=== PATIENT | male | born 1965 | race Caucasian/White ===

== ENCOUNTER 2018-10-28 17:45 | Inpatient (IN) | payer SELFPAY ==
[2018-10-28] MEDS ORDERED: NS 0.9% 1000 ML** 1,000 ML IV ONE (21:42)
[2018-10-28] MEDS ORDERED: Vancomycin(*) 1,500 MG in NS 0.9% 250 ML* 250 ML IVPB ONE (21:43)
--- NOTE | 2018-10-28 21:44 | ED ---
Skin Complaint - HPI Summary HPI Summary: This pt is a 53 y/o male presenting to [facility] c/o wound to left moreno. Pt reports he scraped his left moreno about 3 weeks ago and washed it with water from the [place]. He notes it became infected and was placed on Doxycycline and then Keflex. Pt has been taking antibiotics without effect. Pt notes today he [facility] and was sent to the ED for further treatment. Pt notes his wound on left moreno is painful and red. Denies fever[place] now. Denies DM. Denies any IVDU. Pt admits to marijuana and some alcohol use. Denies any drug use. - History of Current Complaint Chief Complaint: EDRashSkinAbscess Time Seen by Provider: 10/28/18 21:35 Stated Complaint: Staph infection per pt Hx Obtained From: Patient Onset/Duration: Started Weeks Ago, Still Present Skin Exposure Onset/Duration: Weeks Ago Timing: Lasting Weeks Current Severity: Moderate Pain Intensity: 4 Pain Scale Used: 0-10 Numeric Skin Location: Other: - left moreno Character: Pain, Redness Aggravating Symptom(s): Nothing Alleviating Symptom(s): Nothing Associated Signs & Symptoms: Negative - Allergy/Home Medications Allergies/Adverse Reactions: Allergies Allergy/AdvReac Type Severity Reaction Status Date / Time Penicillins Allergy GI Upset Verified 10/28/18 22:20 Home Medications: Home Medications NK [No Home Medications Reported] 10/28/18 [History Confirmed 10/28/18] PMH/Surg Hx/FS Hx/Imm Hx Endocrine/Hematology History: Denies: Hx Diabetes Cardiovascular History: Denies: Hx Hypertension Infectious Disease History: No Infectious Disease History: Denies: Traveled Outside the [place] in Last 30 Days - Family History Known Family History: Negative: Cardiac Disease, Hypertension, Diabetes - Social History Alcohol Use: Weekly Substance Use Type: Reports: Marijuana Substance Use Comment - Amount & Last Used: Weekly Smoking Status (MU): Heavy Every Day Tobacco Smoker Review of Systems Negative: Fever Musculoskeletal: Other - POSITIVE: left moreno abel Skin: Other - POSITIVE: wound to left moreno All Other Systems Reviewed And Are Negative: Yes Physical Exam - Summary Physical Exam Summary: Appearance: Well-appearing, Well-nourished, lying in bed comfortable Skin: Warm, dry, no obvious rash. Left leg has a 2 x5 cm irregularly shaped ulcer in the skin, which is exuding pus with surrounding erythema but not lymphangitic streaking. Eyes: sclera anicteric, no conjunctival pallor ENT: mucous membranes moist Neck: deferred Respiratory: No signs of respiratory distress Cardiovascular: Appears well perfused, pulses are nml Abdomen: deferred Musculoskeletal: Moving all 4 extremities without obvious discomfort Neurological: Awake and alert, mentation is normal, speech is fluent and appropriate Psychiatric: affect is normal, does not appear anxious or depressed Triage Information Reviewed: Yes Vital Signs On Initial Exam: Initial Vitals Temp Pulse Resp BP Pulse Ox 99.4 F 89 18 121/91 95 10/28/18 18:01 10/28/18 18:01 10/28/18 18:01 10/28/18 18:01 10/28/18 18:01 Vital Signs Reviewed: Yes Diagnostics - Vital Signs Vital Signs Temp Pulse Resp BP Pulse Ox 10/28/18 20:05 98.2 F 82 16 130/79 96 10/28/18 18:01 99.4 F 89 18 121/91 95 - Laboratory Result Diagrams: 10/28/18 22:06 10/28/18 22:06 Lab Statement: Any lab studies that have been ordered have been reviewed, and results considered in the medical decision making process. Course/Dx - Course Assessment/Plan: Pt is a 53 y/o male presenting to [facility] c/o wound to left moreno. Pt reports he scraped his left moreno about 3 weeks ago and washed it with water from the [place]. Pt not responding to antibiotics and was sent to the ED for further treatment. Blood work was obtained. In the ED course the pt was given IV fluids, vancomycin, naproxen. Discussed the case with Dr. Xie, hospitalist, who accepted the pt for admission. - Diagnoses Provider Diagnoses: Cellulitis, Leg ulcer, left - Physician Notifications Discussed Care Of Patient With: Flakita Xie - hospitalist Time Discussed With Above Provider: 22:07 Instructed by Provider To: Admit As Inpatient Discharge - Sign-Out/Discharge Documenting (check all that apply): Patient Departure - Admit to [facility] Received Moderate/Deep Sedation with Procedure: No - Discharge Plan Condition: Stable Disposition: ADMITTED TO [facility] - Billing Disposition and Condition Condition: STABLE Disposition: Admitted to [facility] - Attestation Statements Document Initiated by Scribe: Yes Documenting Scribe: Jerrica Pham Provider For Whom Yasmani is Documenting (Include Credential): Israel Castro MD Scribe Attestation: I, maren Jacksonibed for Israel Castro MD on 10/30/18 at 0604. Scribe Documentation Reviewed: Yes Provider Attestation: The documentation as recorded by the Jerrica sommers accurately reflects the service I personally performed and the decisions made by me, Israel Castro MD Status of Scribe Document: Viewed
[2018-10-28 22:10] LABS: ABS Basophils 0.1 10^3/ul (0-0.2); ABS Eosinophils 0.2 10^3/ul (0-0.6); ABS Lymphocytes 2.4 10^3/ul (1.0-4.8); ABS Monocytes 0.6 10^3/ul (0-0.8); ABS Neutrophils 4.7 10^3/ul (1.5-7.7); Eosinophil % 2.6 %; Hematocrit 41 % (42-52); Hemoglobin 13.7 g/dL (14.0-18.0); Lymphocyte % 29.6 %; Mean Corpuscular HGB Conc 33 g/dL (31-36); Mean Corpuscular Hemoglobin 31 pg (27-31); Mean Corpuscular Volume 93 fL (80-94); Mean Platelet Volume 6.4 fL (7.4-10.4); Platelet Count 275 10^3/uL (150-450); Red Blood Count 4.42 10^6 /uL (4.18-5.48); Red Cell Distribution Width 14 % (10-15)
[2018-10-28] MEDS ORDERED: Naproxen TAB* 375 MG PO ONE (22:23)
[2018-10-28 22:27] LABS: Albumin 3.9 g/dL (3.2-5.2); Albumin/Globulin Ratio 1.3 (1-3); BUN/Creatinine Ratio 22.6 (8-20); C Reactive Protein 3.24 mg/L (<8.01); Calcium 8.6 mg/dL (8.6-10.3); EGFR African American 116.1 (>60); Potassium 3.8 mmol/L (3.5-5.0); Total Bilirubin 0.3 mg/dL (0.2-1.0); Total Protein 6.9 g/dL (6.4-8.9)
[2018-10-28] MEDS ORDERED: Acetaminophen TAB* 325 MG PO PRN (23:35)
[2018-10-28] MEDS ORDERED: Vancomycin per Pharmacy* NOTE FOLLOW UP SCH (23:45)
[2018-10-29] MEDS ORDERED: Nicotine* 4MG (FRUIT FLAVOR) GUM PO PRN (01:20)
--- NOTE | 2018-10-29 02:24 | HP ---
HISTORY AND PHYSICAL: DATE OF ADMISSION: 10/28/18 PRIMARY CARE PROVIDER: None, though the patient has sought medical care at [facility]. CHIEF COMPLAINT: Left leg wound. HISTORY OF PRESENT ILLNESS: Mr. White is a 53-year-old male who states at approximately three to plmna-zuk-y-half weeks ago, he scraped his left moreno. He states he washed the area with soap and water though he then tells me that [place] the leg. He noted an ulceration and erythema and therefore went to [facility] where he was prescribed Keflex for cellulitis. He had continued concerns and therefore after completing the Keflex from back to [facility] and was started on doxycycline. He states he completed this approximately 4 days ago. He notes that the ulcer has enlarged. The surrounding erythema; however, has improved. He has no fevers and no chills though ulceration is painful. He states that it is very itchy around the ulcer. He went to [facility] today for followup and they referred him to the emergency room for worsened infection. PAST MEDICAL HISTORY: None. PAST SURGICAL HISTORY: None. MEDICATIONS: None. ALLERGIES: PENICILLIN, which causes diarrhea. FAMILY HISTORY: He is adopted. SOCIAL HISTORY: The patient smokes 1 pack per day and has done so for 34 years. He drinks alcohol on occasion. He smokes marijuana on occasion. He states he works for a [employer] [place]. He states he also cooks. He is . He has no children. He indicates that his sister , Mulu White, would be his surrogate decision maker that he states he has not spoken to her in 6 years. REVIEW OF SYSTEMS: A complete 11-system review of systems is obtained. Pertinent positives and negatives are as per HPI and otherwise negative. PHYSICAL EXAMINATION GENERAL: The patient is a well-developed, middle-aged male, sitting up in the stretcher, in no acute distress. VITAL SIGNS: Blood pressure 121/91, pulse 89, respirations 18, temp 99.4, O2 sat 95% on room air. HEENT: Pupils are equal and round. Extraocular muscles are intact. Oropharynx is clear. Oral mucosa is moist. There is no submandibular, cervical , or supraclavicular adenopathy. Thyroid is not enlarged. No thyroid nodules are noted. PULMONARY: Lungs are clear to auscultation bilaterally. CARDIAC: Normal S1, S2. Regular rate and rhythm. I do not appreciate any murmurs. ABDOMEN: Bowel sounds are present. Abdomen is soft, nontender, and nondistended. MUSCULOSKELETAL: There is no cyanosis or clubbing of the digits. There is full active range of motion of all 4 extremities. SKIN: There is a large approximately 1.5 to 2 inch long irregular-shaped ulceration with exposed subcutaneous tissue and slight amount of slough overlying the left anterior moreno. There is erythema surrounding the wound that looks to be inflammatory in nature. There is peeling skin surrounding the wound. There is also perhaps another smaller area of ulceration occurring at the upper aspect of the area of erythema. NEURO: Cranial nerves II through XII are grossly intact. Sensation is intact to light touch throughout. PSYCH: The patient is alert. He is oriented x3. Affect appears appropriate. LABORATORY DATA: WBC 8.0, hemoglobin 13.7, hematocrit 41, platelets 275. Sodium 136, potassium 3.8, chloride 105, CO2 26, BUN 19, creatinine 0.84, glucose 156. Lactic acid 1.1. Calcium 8.6, bilirubin 0.3, AST 18, ALT 19, alk phos 84. CRP 3.24. Albumin 3.9. ASSESSMENT AND PLAN: Mr. White is a 53-year-old male who scraped his left leg on something approximately three to ytber-nso-n-half weeks ago, subsequently washed the wound in the [place] though did use soap and has developed worsened ulceration and surrounding cellulitis treated with antibiotics x2 and sent to the emergency room for evaluation of continued infection and need for IV antibiotics. 1. Left lower extremity wound with perhaps mild surrounding cellulitis. At this point, the patient will be admitted under observation status. There is no clear evidence of infection at this time. There is erythema surrounding the wound; however, it appears to be reactive or inflammatory in nature. The wound base does have some slough on it. A culture of this wound obtained previously grew group A Strep. It was resistant to tetracycline but sensitive to cephalosporin. At this point, I feel the patient needs more wound management than anything else. I will administer vancomycin IV overnight while awaiting the repeat wound culture that was obtained in the emergency room. Wound care consult has been requested. 2. DVT prophylaxis: According to the Adult Thrombosis Prophylaxis Risk Factor Assessment Guide, the patient has a total risk factor score of 1 making him low risk. Ambulation will be utilized as DVT prophylaxis. 3. Code status is full. TIME SPENT: 45 minutes were spent admitting this patient. [id number]/[facility] #: [id number] MARYCRUZ
[2018-10-29] MEDS: Vancomycin(*) 1,000 MG in NS 0.9% 250 ML* 250 ML IVPB SCH ×3 (05:56→22:20)
[2018-10-29 06:32] LABS: Urine Appearance Clear; Urine Bilirubin Negative (Negative); Urine Blood Negative (Negative); Urine Color Yellow; Urine Glucose Negative (Negative); Urine Ketones Negative (Negative); Urine Nitrite Negative (Negative); Urine Protein Negative (Negative); Urine Specific Gravity 1.024 (1.010-1.030); Urine Urobilinogen Negative (Negative)
[2018-10-29] MEDS: Nicotine PATCH 21 MG/24 HR* PATCH TRANSDERM SCH (10:17)
--- NOTE | 2018-10-29 12:30 | PN ---
Subjective Date of Service: 10/29/18 Interval History: Patient seen in his room 403 this morning. Pleasant. complains of pain with assessment of his left leg ulcer. he reports intermittent bleed and soaked dressing with blood and secretions. No fever. cultures from this admission still pending. His outpatient culture dated 10/07/18 grew strep Pyogenes resistant to doxycycline. Currently on vancomycin, however he does have purulent secretion and green secretion. I will expand coverage to cover pseudomona's while waiting for the culture Past Medical History: Unchanged from Admission Objective Active Medications: Acetaminophen (Tylenol Tab*) 650 mg PO Q4H PRN PRN Reason: PAIN - MILD Vancomycin HCl 1,000 mg/ (Sodium Chloride) 250 mls @ 166.667 mls/hr IVPB Q8H [facility] Last Admin: 10/29/18 05:56 Dose: 166.667 mls/hr Cefepime HCl (Maxipime 2 Gm In Dextrose Duplex (*)) 2 gm in 50 mls @ 100 mls/ hr IV Q12H [facility] Nicotine (Nicotine Patch 21 Mg/24 Hr*) 1 patch TRANSDERM DAILY@0800 [facility] Last Admin: 10/29/18 10:17 Dose: Not Given Nicotine Polacrilex (Nicotine Gum*) 4 mg PO Q2H PRN PRN Reason: CRAVING Last Admin: 10/29/18 10:16 Dose: 4 mg Pharmacy Consult (Vancomycin Per Pharmacy*) 1 note FOLLOW UP .VANC PER PHARMACY [facility]; Protocol Pharmacy Profile Note (Vancomycin Trough Check) 1 note FOLLOW UP 0600 [facility] Stop: 10/30/18 06:01 Pharmacy Profile Note (Nicotine Patch Removal Note*) 1 note FOLLOW UP 2100 [facility] Vital Signs - 8 hr 10/29/18 10/29/18 10/29/18 08:08 11:37 11:54 Temperature 98 F 97.3 F Pulse Rate 56 45 59 Respiratory 18 16 Rate Blood Pressure 118/65 103/47 (mmHg) O2 Sat by Pulse 97 90 95 Oximetry Oxygen Devices in Use Now: None Appearance: Awake, alert. no distress Eyes: No Scleral Icterus, PERRLA Ears/Nose/Mouth/Throat: Mucous Membranes Moist Neck: NL Appearance and Movements; NL JVP, Trachea Midline Respiratory: Symmetrical Chest Expansion and Respiratory Effort, Clear to Auscultation Cardiovascular: NL Sounds; No Murmurs; No JVD, RRR, No Edema Abdominal: NL Sounds; No Tenderness; No Distention Skin: - - DOREEN ulcer mid chin with deep crater and purulent and greenish discharge Neurological: Alert and Oriented x 3 Result Diagrams: 10/28/18 22:06 10/28/18 22:06 Microbiology and Other Data: Microbiology 10/28/18 21:50 Skin and Soft Tissue MRSA/MSSA (PCR - Final Leg Left Mrsa Negative S.aureus Negative Gram Stain - Final Assess/Plan/Problems-Billing Assessment: 53 y/o male admitted for LLE ulcer traumatic exacerbated by washing with soap and [place] failed outpatient keflex and doxycycline - Patient Problems (1) Ulcer of left lower leg Current Visit: Yes Status: Acute Code(s): L97.929 - NON-PRS CHRONIC ULC UNSP PRT OF L LOW LEG W UNSP SEVERITY SNOMED Code(s): 046055942 Comment: - Failed outpatient keflex and doxycycline - Admitted on 10/28/18 on vancomycin Day # 1, will add Cefepime to cover pseudomona pending final culture - his outpatient culture from 10/07/18 grew strep Pyogenes resistant to doxycycline, will reculture to ensure he did not have secondary bacterial infections. - Ordered ESR, CRP as baseline now and further trending afterward - Surgery consult request, Dr. Coronado called. - Calicum alginate dressing ordered pending further recommendation from Dr. Coronado (2) DVT prophylaxis Current Visit: Yes Status: Acute Code(s): Z29.9 - ENCOUNTER FOR PROPHYLACTIC MEASURES, UNSPECIFIED SNOMED Code(s): 973588368 Comment: - Start lovenox 40 mg SQ daily
[2018-10-29] MEDS: Enoxaparin(*) 40 MG/0.4 ML SYR SUBCUT SCH (13:04)
[2018-10-29] MEDS: Cefepime 2 GM in Dextrose(*) 2 GM/50 ML BAG IV SCH (13:04)
--- NOTE | 2018-10-29 15:30 | CONS ---
CONSULTATION REPORT: DATE OF CONSULT: 10/29/18 CHIEF COMPLAINT: Left moreno wound. HISTORY OF PRESENT ILLNESS: This pleasant 53-year-old gentleman was admitted for treatment of a left leg wound. He states he scraped it about 3 to 3-1/2 weeks ago and did some local care to it. When it became bigger and the skin became more red, he went to seek treatment elsewhere, was placed on 2 d ifferent rounds of antibiotics as described in the history and physical and presented here for furthe r treatment. PAST MEDICAL HISTORY: Denies history of cardiac, liver, kidney, or lung disease. No diabetes. PAST SURGICAL HISTORY: No prior surgery noted. MEDICATIONS: He is currently on: 1. A cephalosporin. 2. Vancomycin. ALLERGIES: PENICILLINS "caused diarrhea." FAMILY HISTORY: Unknown, he is adopted. SOCIAL HISTORY: He has been smoking a pack of cigarettes a day for over 30 years. REVIEW OF SYSTEMS: Denies weight loss, change in appetite. HEENT: No changes in vision, hearing, o r swallowing. No sore throat. Cardiac: No chest pain. Pulmonary: No cough. GI: No blood per rec manolo. : No hematuria. Skin: Denies rash or other issues other than the current complaint. Neuro : No headache or dizziness. Musculoskeletal: No extremity weakness. Psych: No anxiety or depress ion. PHYSICAL EXAM: General: Pleasant gentleman, in no acute distress. HEENT: The sclerae are anicteri c. The oral mucosa is pink and moist. Neck is supple. Heart is regular. Lungs are clear. Abdomen is soft. Extremities: There is no edema in the lower extremities. There is a granulating wound on the anterior left moreno approximately 6 x 3 cm in length and width and about a 0.5 cm deep. There is some fibrinous exudate which is debrided formally with gauze. IMPRESSION AND PLAN: Open wound, left leg, granulating. Change him to Aquacel, calcium alginate wit h silver daily dressing change coverage. The patient was encouraged to discontinue smoking. There d oes not appear to be any systemic issue or any extending cellulitis. Local wound treatment should be allowed as needed. Nutritional support, smoking cessation, and wound care. [id number]/[facility] #: [id number]
[2018-10-29] MEDS: Nicotine Patch Removal NOTE FOLLOW UP SCH ×2 (21:45→22:20)
[2018-10-30] MEDS: Cefepime 2 GM in Dextrose(*) 2 GM/50 ML BAG IV SCH ×2 (00:06→11:59)
[2018-10-30] MEDS ORDERED: Vancomycin Trough Check NOTE FOLLOW UP ONE (06:00)
[2018-10-30 06:52] LABS: ABS Eosinophils 0.2 10^3/ul (0-0.6); ABS Lymphocytes 1.7 10^3/ul (1.0-4.8); ABS Monocytes 0.7 10^3/ul (0-0.8); ABS Neutrophils 3.7 10^3/ul (1.5-7.7); Eosinophil % 2.5 %; Hematocrit 42 % (42-52); Hemoglobin 14.5 g/dL (14.0-18.0); Lymphocyte % 26.7 %; Mean Corpuscular HGB Conc 34 g/dL (31-36); Mean Corpuscular Hemoglobin 32 pg (27-31); Mean Corpuscular Volume 93 fL (80-94); Mean Platelet Volume 6.8 fL (7.4-10.4); Nucleated Red Blood Cells % 0.1; Platelet Count 224 10^3/uL (150-450); Red Blood Count 4.55 10^6 /uL (4.18-5.48); Red Cell Distribution Width 14 % (10-15); White Blood Count 6.2 10^3/uL (3.5-10.8)
[2018-10-30 07:02] LABS: C Reactive Protein 2.89 mg/L (<8.01); Calcium 8.7 mg/dL (8.6-10.3); EGFR African American 122.8 (>60); EGFR Non-African American 101.5 (>60); Magnesium 2.2 mg/dL (1.9-2.7); Phosphorus 3.1 mg/dL (2.5-5.0); Potassium 4.4 mmol/L (3.5-5.0); Vancomycin Trough 6.6 mcg/mL
[2018-10-30] MEDS: Vancomycin(*) 1,000 MG in NS 0.9% 250 ML* 250 ML IVPB SCH ×2 (07:56→14:50)
[2018-10-30] MEDS: Nicotine PATCH 21 MG/24 HR* PATCH TRANSDERM SCH (07:56)
[2018-10-30 08:32] LABS: Erythrocyte Sed Rate 4 mm/Hr (0-19)
[2018-10-30] MEDS: Enoxaparin(*) 40 MG/0.4 ML SYR SUBCUT SCH (11:59)
--- NOTE | 2018-10-30 14:58 | PN ---
Subjective Date of Service: 10/30/18 Interval History: Reports improvement. Seen by surgery. Past Medical History: Unchanged from Admission Objective Active Medications: Acetaminophen (Tylenol Tab*) 650 mg PO Q4H PRN PRN Reason: PAIN - MILD Enoxaparin Sodium (Lovenox(*)) 40 mg SUBCUT Q24H [facility] Last Admin: 10/30/18 11:59 Dose: 40 mg Ceftriaxone Sodium 1 gm/ (Sodium Chloride) 50 mls @ 100 mls/hr IVPB Q24H [facility] Nicotine (Nicotine Patch 21 Mg/24 Hr*) 1 patch TRANSDERM DAILY@0800 [facility] Last Admin: 10/30/18 07:56 Dose: Not Given Nicotine Polacrilex (Nicotine Gum*) 4 mg PO Q2H PRN PRN Reason: CRAVING Last Admin: 10/29/18 10:16 Dose: 4 mg Pharmacy Profile Note (Nicotine Patch Removal Note*) 1 note FOLLOW UP 2100 [facility] Last Admin: 10/29/18 21:45 Dose: Not Given Vital Signs - 8 hr 10/30/18 10/30/18 08:00 11:27 Temperature 97.6 F 98.4 F Pulse Rate 52 70 Respiratory 16 18 Rate Blood Pressure 110/73 123/68 (mmHg) O2 Sat by Pulse 97 96 Oximetry Oxygen Devices in Use Now: None Eyes: No Scleral Icterus Ears/Nose/Mouth/Throat: NL Teeth, Lips, Gums Neck: NL Appearance and Movements; NL JVP Respiratory: Symmetrical Chest Expansion and Respiratory Effort Cardiovascular: NL Sounds; No Murmurs; No JVD Abdominal: NL Sounds; No Tenderness; No Distention Lymphatic: No Cervical Adenopathy Extremities: No Edema, - - L LE erythema improved.Non tender Neurological: Alert and Oriented x 3 Result Diagrams: 10/30/18 05:48 10/30/18 05:48 Microbiology and Other Data: Microbiology 10/28/18 21:50 Skin and Soft Tissue MRSA/MSSA (PCR - Final Leg Left Mrsa Negative S.aureus Negative Gram Stain - Final Assess/Plan/Problems-Billing Assessment: 53 y/o male admitted for LLE ulcer traumatic exacerbated by washing with soap and [place] failed outpatient keflex and doxycycline - Patient Problems (1) Ulcer of left lower leg Current Visit: Yes Status: Acute Code(s): L97.929 - NON-PRS CHRONIC ULC UNSP PRT OF L LOW LEG W UNSP SEVERITY SNOMED Code(s): 301477979 Comment: - Failed outpatient keflex and doxycycline - Admitted on 10/28/18 on vancomycin , added Cefepime to cover pseudomona pending final culture - his outpatient culture from 10/07/18 grew strep Pyogenes resistant to doxycycline, will reculture to ensure he did not have secondary bacterial infections. - Ordered ESR, CRP as baseline now and further trending afterward - Surgery consult request, Dr. Coronado called.Reviewed - Calicum alginate dressing ordered pending further recommendation from Dr. Coronado -Improved -Strep Pyogenes sensitive to Ceftriaxone. Will stop Cefepime and Doxycycline and d/c on Ceftin if continuing to improve tomorrow (2) DVT prophylaxis Current Visit: Yes Status: Acute Code(s): Z29.9 - ENCOUNTER FOR PROPHYLACTIC MEASURES, UNSPECIFIED SNOMED Code(s): 734676134 Comment: - Start lovenox 40 mg SQ daily
[2018-10-30] MEDS ORDERED: cefTRIAXone(*) 1 GM in NS 0.9% 50 ML* 50 ML IVPB SCH (16:00)
[2018-10-30] MEDS: Nicotine Patch Removal NOTE FOLLOW UP SCH (21:15)
[2018-10-31 07:39] LABS: ABS Eosinophils 0.2 10^3/ul (0-0.6); ABS Lymphocytes 2.2 10^3/ul (1.0-4.8); ABS Monocytes 0.9 10^3/ul (0-0.8); ABS Neutrophils 4.3 10^3/ul (1.5-7.7); Eosinophil % 2.1 %; Hematocrit 45 % (42-52); Hemoglobin 15.1 g/dL (14.0-18.0); Mean Corpuscular HGB Conc 34 g/dL (31-36); Mean Corpuscular Hemoglobin 32 pg (27-31); Mean Corpuscular Volume 93 fL (80-94); Mean Platelet Volume 6.7 fL (7.4-10.4); Nucleated Red Blood Cells % 0.1; Platelet Count 226 10^3/uL (150-450); Red Cell Distribution Width 14 % (10-15); White Blood Count 7.6 10^3/uL (3.5-10.8)
[2018-10-31 07:56] LABS: BUN/Creatinine Ratio 18.1 (8-20); Calcium 8.9 mg/dL (8.6-10.3); EGFR African American 117.7 (>60); EGFR Non-African American 97.3 (>60); Potassium 4.4 mmol/L (3.5-5.0)
[2018-10-31 08:32] VITALS: BP 123/77
[2018-10-31] MEDS: Nicotine PATCH 21 MG/24 HR* PATCH TRANSDERM SCH (08:42)
--- NOTE | 2018-10-31 11:30 | DS ---
DISCHARGE SUMMARY: DATE OF ADMISSION: 10/28/18 DATE OF DISCHARGE: 10/31/18 PRIMARY DIAGNOSIS: Left lower extremity ulcer and cellulitis. HOSPITAL COURSE: A 53-year-old male had scraped his left moreno 3-1/2 weeks ago. He had ulceration an d erythema and went to [facility] where he was prescribed Keflex, continued to not improve and the n was switched to doxycycline. He completed this, however, the ulcer had enlarged and came into the hospital for ulceration and cellulitis. The patient's prior wound culture had grown Strep pyogenes/g roup A strep that was resistant to doxycycline, but sensitive to penicillin. The patient was advised to stop smoking. The patient was started on broad-spectrum antibiotics with vancomycin and cefepime initially in the ER as his cellulitis had progressed despite being on 2 outpatient antibiotics. The patient's condition improved. The surgical consult was also obtained with Dr. Niall Coronado, who t hought the wound was granulating well, changed him to Aquacel, calcium alginate with silver daily markell ssing change coverage. With this and ongoing antibiotics, the patient improved. His white count is stable, did not have a fever. The patient's repeat cultures from 10/28/18 also came back group A/Str ep pyogenes sensitive to cefepime, cefotaxime, ceftriaxone, ampicillin, resistant to tetracycline, az ithromycin, clindamycin. The patient was transitioned to IV ceftriaxone, continued to improve, and t he patient at this time is being discharged on 5 more days of Ceftin as the wound is almost healed ba ck to normal. Vitals and labs noted to be stable at time of discharge. LABORATORY DATA: WBC 7.6, hemoglobin 15.1, hematocrit 45, platelets noted to be 226. Sodium 136, po tassium 4.4, chloride 106, CO2 of 24, BUN 15, creatinine 0.8. PHYSICAL EXAMINATION: HEENT: NC/AT. Heart: S1, S2 present. Regular rhythm exam. Lungs: Clear t o auscultation bilaterally. Abdomen: Soft. Extremities: noted to have no edema. Left lower extrem ity ulcer with clean base, only about 2 cm with no surrounding erythema. This has significantly impr krzysztof. No swelling, not warm to touch. MEDICATION LIST: Ceftin 500 mg p.o. b.i.d. for 5 days. The patient is not on any other home medicat ions. DISPOSITION: Home. CONDITION: Stable. INSTRUCTIONS: 1. The patient to follow up with [facility]/his primary provider in 1 to 2 weeks. 2. The patient to [facility] [place] as an outpatient. TIME SPENT: Total time spent on discharge is equal to 40 minutes. [id number]/[facility] #: [id number]
== END 2018-10-31 10:40 | disposition home or self-care (01) | DRG 593 ==
LOC: ED 17:45 → MED 23:35 → OBSVTOIN 10-29 11:00
PROVIDERS: ADMIT Hospitalist; ATTEND Internal Medicine
DX: L97.829 Non-pressure chronic ulcer of other part of left lower leg with unspecified severity (principal); L03.116 Cellulitis of left lower limb; B95.0 Streptococcus, group A, as the cause of diseases classified elsewhere; Z16.39 Resistance to other specified antimicrobial drug; F17.210 Nicotine dependence, cigarettes, uncomplicated; Z88.0 Allergy status to penicillin
CPT/HCPCS: 36415; 80048; 80053; 80202; 81003; 83605; 83735; 84100; 85025; 85652; 86140; 87070; 87077; 87186; 87205; 87640; 87641; 99283; 99406; A9270-GY; J0692; J0696; J1650; J3370